=== PATIENT | male | born 1965 | race Caucasian/White ===

== ENCOUNTER 2024-08-14 11:24 | Emergency (ER) | payer OTHER ==
[2024-08-14 13:06] LABS: Absolute Basophils 0.1 K/uL (0-0.5); Absolute Eosinophils 0.1 K/uL (0-0.5); Absolute Lymphocytes (CBC) 1.9 K/uL (0.7-4.9); Absolute Monocytes 0.6 K/uL (0.1-1.3); Absolute Neutrophil 7.2 K/uL (1.8-8.0); Basophils % 1.1 % (0-1.3); Eosinophils % 1.3 % (0-4.4); Hematocrit 52.7 % (39.6-49.0); Hemoglobin 18.6 g/dL (13.6-17.9); Lymphocytes % 18.8 % (15.3-44.8); MCH 32.1 pg (27.0-35.0); MCHC 35.3 g/dL (32.0-36.0); MCV 91.1 fL (80-100); MPV 7.5 fL (7.6-11.3); Monocytes % 5.9 % (3.3-12.3); Neutrophils % 72.9 % (41.7-73.7); Nucleated Red Blood Cells % 0.1 % (0-0); Platelets 170 thou/uL (152-406); RBC Red Blood Cell Count 5.78 M/uL (4.33-5.43); Red Cell Distribution Width 13.8 % (12.1-15.2)
[2024-08-14 13:25] LABS: Albumin 4.4 g/dL (3.4-5.0); Albumin/Globulin Ratio 1.3 (1.1-1.8); Anion Gap 10.7 mEq/L (5.0-15.0); Bilirubin Direct 0.5 mg/dL (0-0.2); Bilirubin Total 2.5 mg/dL (0.2-1.0); Globulin 3.4 g/dL (2.3-3.5); Magnesium 2.1 mg/dL (1.6-2.4); Potassium 3.7 mEq/L (3.5-5.1); Protein, Total 7.8 g/dL (6.4-8.2); Troponin High Sensitivity 5.7 pg/mL (<58.9)
[2024-08-14] MEDS ORDERED: FAMOTIDINE 20 MG/2 ML VIAL IV ONE (13:31)
[2024-08-14] MEDS ORDERED: NA CHLORIDE 0.9% 1,000 ML ONE (13:31)
[2024-08-14] MEDS ORDERED: ONDANSETRON 4 MG/2 ML VIAL ONE (13:31)
--- NOTE | 2024-08-14 14:10 | RAD REPORT ---
EXAM: Chest Single View HISTORY: 59 years Male ABDOMINAL DISTENTION COMPARISON: None. FINDINGS: LUNGS/PLEURA: The lungs are clear. No pleural effusions or pneumothorax. No pulmonary edema. CARDIAC/MEDIASTINUM: The cardiac silhouette is within normal limits. UPPER ABDOMEN: No significant abnormality. BONES: No acute abnormality. LINES/TUBES/OTHER: N/A IMPRESSION: No evidence of acute cardiopulmonary disease.
--- NOTE | 2024-08-14 14:25 | ER ---
Nurse's Notes [facility] Name: Braeden Ortiz Jr Age: 59 yrs Sex: Male : 1965 Arrival Date: 08/14/2024 Time: 11:24 Bed 19 Private MD: Diagnosis: Vomiting;Adverse effect of unspecified drugs, medicaments and biological substances-SEMAGLUTIDE Presentation: 08/14 12:04 Chief complaint: Patient states: N/V for 24 hours. Dizzy and weak. Sent in by Dr. Ravindra dc at [facility]. Coronavirus screen: Client denies travel out of the [place] in the last 14 days. At this time, the client does not indicate any symptoms associated with coronavirus-19. Ebola Screen: Patient denies travel to an Ebola-affected area in the 21 days before illness onset. Initial Sepsis Screen: Does the patient meet any 2 criteria? No. Patient's initial sepsis screen is negative. Does the patient have a suspected source of infection? No. Patient's initial sepsis screen is negative. Risk Assessment: Do you want to hurt yourself or someone else? Patient reports no desire to harm self or others. Onset of symptoms was August 13, 2024. 12:04 Method Of Arrival: Ambulatory ll1 12:04 Acuity: JAYSHREE 3 ll1 Triage Assessment: 12:04 General: Appears uncomfortable, Behavior is calm, cooperative, appropriate for age, ll1 Reports fatigue for. Neuro: Reports dizziness, weakness. GI: Reports nausea, vomiting. 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 - Infectious Disease History:: Denies. - Social history:: Smoking status: Patient denies any tobacco usage or history of. Screenin:25 [facility] ED Fall Risk Assessment (Adult) History of falling in the last 3 months, me1 including since admission No falls in past 3 months (0 pts) Confusion or Disorientation No (0 pts) Intoxicated or Sedated No (0 pts) Impaired Gait No (0 pts) Mobility Assist Device Used No (0 pt) Altered Elimination No (0 pt) Score/Fall Risk Level 0 - 2 = Low Risk Maintained a safe environment, Provided non-skid footwear, Hourly rounding (assess needs \T\ fall precautionary measures) done. Abuse screen: Denies threats or abuse. Nutritional screening: No deficits noted. Tuberculosis screening: No symptoms or risk factors identified. Assessment: 13:23 Reassessment: No changes from previously documented assessment. Patient and/or family ll1 updated on plan of care and expected duration. Pain level reassessed. 13:25 General: Appears in no apparent distress. well groomed, well developed, Behavior is me1 calm, cooperative, appropriate for age, Reports N/V for 24 hours. Dizzy and weak. Sent in by Dr. Waite at [facility]. Pain: Denies pain. Neuro: Level of Consciousness is awake, alert, obeys commands, Oriented to person, place, time, situation, Appropriate for age Reports dizziness, since yesterday weakness since yesterday, generalized weakness. Cardiovascular: Patient's skin is warm and dry. Respiratory: Airway is patent Respiratory effort is even, unlabored, Respiratory pattern is regular, symmetrical. GI: Abdomen is obese, Reports nausea, vomiting, since yesterday. : No signs and/or symptoms were reported regarding the genitourinary system. EENT: No signs and/or symptoms were reported regarding the EENT system. Derm: Skin is intact, is healthy with good turgor, Skin is pink, warm \T\ dry. Musculoskeletal: No signs and/or symptoms reported regarding the musculoskeletal system. 15:24 General: Discharge delayed for CT results to post.. mo1 Vital Signs: 12:04 BP 171 / 95; Pulse 91; Resp 18; Temp 97.6; Pulse Ox 97% on R/A; Weight 148.78 kg; ll1 Height 5 ft. 8 in. ; Pain 5/10; 13:30 BP 143 / 86; Pulse 91; Resp 19; Pulse Ox 92% ; me1 14:00 BP 126 / 89; Pulse 89; Resp 20; Pulse Ox 96% ; me1 15:10 BP 147 / 81; Pulse 83; Resp 20; Temp 98.1; Pulse Ox 95% on R/A; me1 12:04 Body Mass Index 49.87 (148.78 kg, 172.72 cm) [facility] 12:04 Pain Scale: Adult ll1 ED Course: 11:37 Patient arrived in ED. cj3 11:39 Honorio Coburn MD is Attending Physician. ritchie 11:43 Arm band placed on. ll1 12:05 Triage completed. ll1 12:41 XRAY Chest (1 view) In Process Unspecified. EDMS 12:56 Basic Metabolic Panel Sent. bc6 12:56 CBC with Diff Sent. bc6 12:56 LFT's Sent. bc6 12:56 Magnesium Sent. bc6 12:56 NT PRO-BNP Sent. bc6 12:56 Troponin HS Sent. bc6 12:56 Initial lab(s) drawn, by me, sent to lab. Inserted saline lock: 20 gauge in left bc6 forearm, using aseptic technique. Blood collected. Flushed with 10 mL NS. 13:23 Patient placed in an exam room, on a stretcher. ll1 13:25 Patient has correct armband on for positive identification. Bed in low position. Call me1 light in reach. Provided Education on: POC. Verbalized understanding.. Client placed on continuous cardiac and pulse oximetry monitoring. NIBP monitoring applied. quilt sewer on. Pulse ox on. NIBP on. 13:25 No provider procedures requiring assistance completed. me1 13:26 Aster Christensen, RN is Primary Nurse. me1 13:29 EKG done, by ED staff, reviewed by Honorio Coburn MD. me1 14:23 Pablo Dave MD is Referral Physician. ritchie 14:38 CT Abd/Pelvis - IV Contrast Only In Process Unspecified. EDMS 15:28 IV discontinued, intact, bleeding controlled, No redness/swelling at site. Pressure me1 dressing applied. Administered Medications: 13:40 Drug: NS 0.9% IV 1000 ml IV at 1000 ml once; to be given as a bolus over 60 minutes me1 Route: IV; Rate: 1000 ml; Site: left antecubital; 15:24 Follow up: Response: No adverse reaction; IV Status: Completed infusion; IV Intake: me1 1000ml 13:40 Drug: Ondansetron IVP 4 mg IVP once; over 2 minutes Route: IVP; Site: left antecubital; me1 13:46 Follow up: Response: No adverse reaction; Nausea is decreased me1 13:40 Drug: Famotidine IVP 20 mg IVP once; dilute with 10 mL 0.9% NaCl; give over 2 minutes me1 Route: IVP; Site: left antecubital; 13:46 Follow up: Response: No adverse reaction me1 Medication: 13:25 VIS not applicable for this client. me1 Intake: 15:24 IV: 1000ml; Total: 1000ml. me1 Outcome: 14:24 Discharge ordered by . ritchie 15:28 Discharged to home ambulatory, [facility] 15:28 Condition: stable 15:28 Discharge instructions given to patient, Instructed on discharge instructions, follow up and referral plans. medication usage, Demonstrated understanding of instructions, follow-up care, medications, Prescriptions given X 1, 15:29 Patient left the ED. me1 Signatures: Dispatcher [employer] EDMS Honorio Coburn MD MD cha Lewis, Lynsay, RN RN 1 Kim Cortez 6 Aster Christensen RN RN me1 Stacy Mccarty [email or web address] Corrections: (The following items were deleted from the chart) 12:09 12:04 Chief complaint: Patient states: N/V for [address] [place] [address] Waite [place] [id number] 13:27 12:04 Chief complaint: Patient states: N/V for 24 hours. Dizzy and weak. Sent in by Dr. norma Waite at [facility]
--- NOTE | 2024-08-14 14:25 | EDPHYS ---
Physician Documentation [facility] Name: Braeden Ortiz Jr Age: 59 yrs Sex: Male : 1965 Arrival Date: 08/14/2024 Time: 11:24 Bed 19 Private MD: CARMITA Physician Honorio Coburn HPI: 08/14 14:16 This 59 yrs old Male presents to ER via Ambulatory with complaints of ritchie Nausea/Vomiting. 14:16 The patient presents to the emergency department with nausea, that is mild. Onset: The ritchie symptoms/episode began/occurred 2 day(s) ago. Possible causes: antibiotics, bad food exposure. The symptoms are aggravated by nothing. The symptoms are alleviated by nothing. Associated signs and symptoms: Pertinent positives: nausea, vomiting. Severity of symptoms: At their worst the symptoms were mild in the emergency department the symptoms are unchanged. The patient has experienced similar episodes in the past, several times. 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 - Infectious Disease History:: Denies. - Social history:: Smoking status: Patient denies any tobacco usage or history of. ROS: 14:20 Constitutional: Negative for fever, chills, and weight loss, Eyes: Negative for injury, ritchie pain, redness, and discharge, ENT: Negative for injury, pain, and discharge, Neck: Negative for injury, pain, and swelling, Cardiovascular: Negative for chest pain, palpitations, and edema, Respiratory: Negative for shortness of breath, cough, wheezing, and pleuritic chest pain, Back: Negative for injury and pain, : Negative for injury, bleeding, discharge, and swelling, MS/Extremity: Negative for injury and deformity, Skin: Negative for injury, rash, and discoloration, Neuro: Negative for headache, weakness, numbness, tingling, and seizure, Psych: Negative for depression, anxiety, suicide ideation, homicidal ideation, and hallucinations, Allergy/Immunology: Negative for hives, rash, and allergies, Endocrine: Negative for neck swelling, polydipsia, polyuria, polyphagia, and marked weight changes, Hematologic/Lymphatic: Negative for swollen nodes, abnormal bleeding, and unusual bruising, 14:20 Abdomen/GI: Positive for nausea and vomiting, Exam: 14:20 Constitutional: This is a well developed, well nourished patient who is awake, alert, ritchie and in no acute distress. Head/Face: Normocephalic, atraumatic. Eyes: Pupils equal round and reactive to light, extra-ocular motions intact. Lids and lashes normal. Conjunctiva and sclera are non-icteric and not injected. Cornea within normal limits. Periorbital areas with no swelling, redness, or edema. ENT: Nares patent. No nasal discharge, no septal abnormalities noted. Tympanic membranes are normal and external auditory canals are clear. Oropharynx with no redness, swelling, or masses, exudates, or evidence of obstruction, uvula midline. Mucous membranes moist. Neck: Trachea midline, no thyromegaly or masses palpated, and no cervical lymphadenopathy. Supple, full range of motion without nuchal rigidity, or vertebral point tenderness. No Meningismus. Chest/axilla: Normal chest wall appearance and motion. Nontender with no deformity. No lesions are appreciated. Cardiovascular: Regular rate and rhythm with a normal S1 and S2. No gallops, murmurs, or rubs. Normal PMI, no JVD. No pulse deficits. Respiratory: Lungs have equal breath sounds bilaterally, clear to auscultation and percussion. No rales, rhonchi or wheezes noted. No increased work of breathing, no retractions or nasal flaring. Abdomen/GI: Soft, non-tender, with normal bowel sounds. No distension or tympany. No guarding or rebound. No evidence of tenderness throughout. Back: No spinal tenderness. No costovertebral tenderness. Full range of motion. Male : Normal genitalia with no discharge or lesions. Skin: Warm, dry with normal turgor. Normal color with no rashes, no lesions, and no evidence of cellulitis. MS/ Extremity: Pulses equal, no cyanosis. Neurovascular intact. Full, normal range of motion., bilateral aka Neuro: Awake and alert, GCS 15, oriented to person, place, time, and situation. Cranial nerves II-XII grossly intact. Motor strength 5/5 in all extremities. Sensory grossly intact. Cerebellar exam normal. Normal gait. Psych: Awake, alert, with orientation to person, place and time. Behavior, mood, and affect are within normal limits. 14:20 ECG was reviewed by the Attending Physician. Vital Signs: 12:04 BP 171 / 95; Pulse 91; Resp 18; Temp 97.6; Pulse Ox 97% on R/A; Weight 148.78 kg; ll1 Height 5 ft. 8 in. ; Pain 5/10; 13:30 BP 143 / 86; Pulse 91; Resp 19; Pulse Ox 92% ; me1 14:00 BP 126 / 89; Pulse 89; Resp 20; Pulse Ox 96% ; me1 15:10 BP 147 / 81; Pulse 83; Resp 20; Temp 98.1; Pulse Ox 95% on R/A; me1 12:04 Body Mass Index 49.87 (148.78 kg, 172.72 cm) ll1 12:04 Pain Scale: Adult ll1 MDM: 11:39 Medical Screening Exam initiated ritchie 11:53 Medical Screening Exam initiated ritchie 14:22 Differential diagnosis: Nonspecific abd pain, gastritis, pancreatitis, viral ritchie gastroenteritis, gastroenteritis. Data reviewed: vital signs, nurses notes, lab test result(s), EKG, radiologic studies, CT scan, plain films. Consideration of Admission/Observation Escalation of care including admission/observation considered. I considered the following discharge prescriptions or medication management in the emergency department Medications were administered in the Emergency Department. See MAR. Independent interpretation of the following test(s) in the Emergency Department EKG: See my EKG interpretation above. Test considered but Not performed: Ultrasound NO ABD USG. Care significantly affected by the following chronic conditions: Diabetes, Hypertension, Obesity, GOUT. 08/14 11:48 Order name: Basic Metabolic Panel; Complete Time: 14:12 [facility] 08/14 11:48 Order name: CBC with Diff; Complete Time: 14:12 [facility] 08/14 11:48 Order name: LFT's; Complete Time: 14:12 [facility] 08/14 11:48 Order name: Magnesium; Complete Time: 14:12 [facility] 08/14 11:48 Order name: NT PRO-BNP; Complete Time: 14:12 [facility] 08/14 11:48 Order name: Troponin HS; Complete Time: 14:12 [facility] 08/14 11:48 Order name: Lipase; Complete Time: 14:12 [facility] 08/14 11:48 Order name: XRAY Chest (1 view); Complete Time: 14:12 [facility] 08/14 11:48 Order name: CT Abd/Pelvis - IV Contrast Only; Complete Time: 15:01 [facility] 08/14 11:48 Order name: EKG; Complete Time: 11:49 [facility] 08/14 11:48 Order name: Cardiac monitoring; Complete Time: 13:40 [facility] 08/14 11:48 Order name: EKG - Nurse/Tech; Complete Time: 12:56 [facility] 08/14 11:48 Order name: IV Saline Lock; Complete Time: 12:56 [facility] 08/14 11:48 Order name: Labs collected and sent; Complete Time: 13:40 [facility] 08/14 11:48 Order name: O2 Per Protocol; Complete Time: 13:40 [facility] 08/14 11:48 Order name: O2 Sat Monitoring; Complete Time: 13:40 [facility] EC:20 Rate is 87 beats/min. Rhythm is regular. QRS [place] is Normal. ME interval is normal. QRS ritchie interval is normal. QT interval is normal. No Q waves. T waves are Normal. No ST changes noted. Clinical impression: NSR w/ Non-specific ST/T Changes and No evidence of ischemia. Interpreted by me. Reviewed by me. Administered Medications: 13:40 Drug: NS 0.9% IV 1000 ml IV at 1000 ml once; to be given as a bolus over 60 minutes me1 Route: IV; Rate: 1000 ml; Site: left antecubital; 15:24 Follow up: Response: No adverse reaction; IV Status: Completed infusion; IV Intake: me1 1000ml 13:40 Drug: Ondansetron IVP 4 mg IVP once; over 2 minutes Route: IVP; Site: left antecubital; me1 13:46 Follow up: Response: No adverse reaction; Nausea is decreased me1 13:40 Drug: Famotidine IVP 20 mg IVP once; dilute with 10 mL 0.9% NaCl; give over 2 minutes me1 Route: IVP; Site: left antecubital; 13:46 Follow up: Response: No adverse reaction me1 Disposition Summary: 08/14/24 14:24 Discharge Ordered Notes: Location: Home ritchie Problem: new ritchie Symptoms: have improved ritchie Condition: Stable ritchie Diagnosis - Vomiting ritchie - Adverse effect of unspecified drugs, medicaments and biological substances - ritchie SEMAGLUTIDE Followup: ritchie - With: Private Physician - When: 2 - 3 days - Reason: Recheck today's complaints, Continuance of care, Re-evaluation by your physician Followup: ritchie - With: Pablo Dave MD - When: 2 - 3 days - Reason: Recheck today's complaints, Re-evaluation by your physician Discharge Instructions: - Discharge Summary Sheet ritchie - Nausea and Vomiting, Adult, [id number] ritchie - Vomiting, Adult [facility] Forms: - Medication Reconciliation Form ritchie - Antibiotic Education rithcie - Prescription Opioid Use ritchie - Patient Portal Instructions ritchie - Leadership Thank You Letter [facility] Prescriptions: - ondansetron 4 mg Oral Tablet,disintegrating - take 1 tablet ORAL route every 6-8 hours PRN N/V; 20 tablet; Refills: 0, ritchie Product Selection Permitted Signatures: Dispatcher [employer] Honorio Sandoval MD MD cha Lewis, Lynsay, RN RN ll1 Aster Christensen RN RN me1
--- NOTE | 2024-08-14 14:54 | RAD REPORT ---
EXAMINATION: Abdomen Pelvis W Contrast CLINICAL INDICATION: Male, 59 years old.Abd pain;Abdominal distention TECHNIQUE: CT abdomen and pelvis was performed, after the administration of IV contrast, [facility] Axial, sagittal and coronal reconstructions were obtained. One or more of the following dose reduction techniques were used: Automated exposure control, adjustment of the mA and/o r kV according to patient size, and/or iterative reconstruction. Unless otherwise specified, incidental findings do not require dedicated imaging follow-up. [id number]. COMPARISON: No prior exam. FINDINGS: LOWER CHEST: Scarring versus subsegmental atelectasis at the right lung baseNo significant pericardia l effusion. UPPER GI: No significant abnormality. LIVER: Hepatic steatosis, but otherwise unremarkable. GALLBLADDER/BILE DUCTS: Cholecystectomy? PANCREAS: No mass, ductal dilation, or bárbara-pancreatic fluid. SPLEEN: Unremarkable. ADRENALS: No adrenal masses. KIDNEYS AND URETERS: No hydronephrosis.Low density and/or too small to characterize renal lesions whi ch are statistically benign.No renal calculi.No ureteral calculi. ABDOMINAL AORTA AND OTHER VESSELS: Mild atherosclerotic changes. PERITONEUM: No abnormal free fluid. No free air. LYMPH NODES: No pathologic lymphadenopathy. ABDOMINAL WALL: Unremarkable SMALL BOWEL/COLON: Small bowel has normal course and caliber. No colonic wall thickening or pericolon ic inflammatory changes.Nonvisualized appendix but no secondary signs of acute appendicitis. Mild diverticulosis without diverticulitis. URINARY BLADDER: Underdistended but grossly unremarkable. REPRODUCTIVE ORGANS: Moderate prostatomegaly. MUSCULOSKELETAL: No acute or suspicious osseous abnormality. ADDITIONAL FINDINGS: None. IMPRESSION: No acute findings within the abdomen or pelvis.
[2024-08-14 15:59] VITALS: BP 147/81; TEMP 98.1; O2SAT 95
--- NOTE | 2024-08-15 11:56 | EKG ---
Test Date: 2024-08-14 Test Time: 12:44:30 Bathroom Tiling Professional: BAMBI MEASUREMENT RESULTS: Intervals: Rate: 87 WA: 136 QRSD: 78 QT: 356 QTc: 428 [place]: P: 23 WA: 136 QRS: 25 T: -6 INTERPRETIVE STATEMENTS: Normal sinus rhythm Normal ECG No previous ECG available for comparison Electronically Signed On 08-15-24 11:53:05 CDT by Maykel Griffiths
== END 2024-08-14 15:29 | disposition home or self-care (01) ==
LOC: ER 11:24
DX: R11.10 Vomiting, unspecified (principal); T50.995A Adverse effect of other drugs, medicaments and biological substances, initial encounter; E11.9 Type 2 diabetes mellitus without complications; I10 Essential (primary) hypertension
CPT/HCPCS: 36415; 71045; 74177; 80048; 80076; 83690; 83735; 83880; 84484; 85025; 93005; J2405; J7030; Q9967